=== PATIENT | male | born 1970 | race Caucasian/White ===

== ENCOUNTER → 2021-07-09 00:54 | Outpatient (CLI) | payer OTHER, SELFPAY ==
[2021-07-09 17:30] LABS: SARS-CoV-2 RNA PCR Negative
== END ==
PROVIDERS: PCP Family Medicine; Visit Provider Physician Assistant
DX: R68.89 Other general symptoms and signs (principal); Z20.822 Contact with and (suspected) exposure to COVID-19
CPT/HCPCS: C9803; U0003; U0005

== ENCOUNTER → 2022-10-19 16:04 | Outpatient (CLI) | payer OTHER, SELFPAY ==
--- NOTE | ~2022-10-19 | CT_ITS ---
EXAMINATION:CT lung screening DATE: 10/19/2022 16:15 INDICATION: Personal history of tobacco dependence. Current smoker with 30 pack year history. TECHNIQUE: Computed tomography (CT) of the chest was performed without intravenous contrast. Automate d exposure control and iterative reconstruction technique were employed. The dose-length product (DLP ) was 222.50 mGy-cm. COMPARISON: None. FINDINGS: There is mild emphysema. There is a 4 mm nodule in right upper lobe. There is mild atelecta sis bilaterally. No pleural effusion. Calcified right hilar lymph nodes are consistent with old granu lomatous disease. The heart size is normal. There are coronary artery calcifications. No pericardial effusion. Calcifications in the spleen are consistent with old granulomatous disease. There is modera te thoracic spondylosis. There is mild chronic anterior wedging of multiple vertebral bodies. IMPRESSION: 1. Lung-RADS category 2: Benign appearance or behavior. Continue annual screening with noncontrast lo w-dose chest CT in 12 months. Reviewed, dictated and finalized at location A. HINOLARYNGOLOGIST IMPRESSION: 1. Lung-RADS category 2: Benign appearance or behavior. Continue annual screeni ng with noncontrast low-dose chest CT in 12 months.
== END ==
PROVIDERS: PCP Family Medicine; Visit Provider Family Medicine
DX: Z12.2 Encounter for screening for malignant neoplasm of respiratory organs (principal); F17.210 Nicotine dependence, cigarettes, uncomplicated
CPT/HCPCS: 71271

== ENCOUNTER 2023-08-14 12:43 | Outpatient (CLI) | payer OTHER, SELFPAY ==
--- NOTE | 2023-08-14 14:00 | NEURO_ITS ---
Impression: # Complains of numbness of hands. # Severe left Carpal Tunnel Syndrome. # Moderate right Carpal Tunnel Syndrome. # Needle/EMG exam neurogenic in left APB. Nerve Conduction Studies Anti Sensory Summary Table Stim Site NR Peak (ms) P-T Amp (?V) Site1 Site2 Delta-P (ms) Dist (cm) Clint (m/s) Left Median Anti Sensory (2-3nd Digit) NO RESPONSE Wrist NR Wrist 2-3nd Digit 14.0 Wrist NR Wrist 2-3nd Digit 14.0 Right Median Anti Sensory (2-3nd Digit) Wrist 5.7 10.2 Wrist 2-3nd Digit 5.7 14.0 25 Wrist 6.5 4.5 Wrist 2-3nd Digit 5.7 14.0 25 Left Radial Anti Sensory (Base 1st Digit) Wrist 2.0 19.3 Wrist Base 1st Digit 2.0 0.0 Right Radial Anti Sensory (Base 1st Digit) Wrist 2.6 9.6 Wrist Base 1st Digit 2.6 0.0 Left Ulnar Anti Sensory (5th Digit) Wrist 3.0 9.8 Wrist 5th Digit 3.0 14.0 47 Right Ulnar Anti Sensory (5th Digit) Wrist 3.0 22.5 Wrist 5th Digit 3.0 14.0 47 Motor Summary Table Stim Site NR Onset (ms) O-P Amp (mV) Site1 Site2 Delta-0 (ms) Dist (cm) Clint (m/s) Left Median Motor (Abd Poll Brev) Wrist 6.2 1.1 Elbow Wrist 6.1 32.0 52 Elbow 12.3 1.2 Right Median Motor (Abd Poll Brev) Wrist 4.2 1.1 Elbow Wrist 6.9 34.0 49 Elbow 11.1 1.4 Left Ulnar Motor (Abd Dig Minimi) Wrist 3.0 6.2 A Elbow Wrist 5.9 33.0 56 A Elbow 8.9 5.4 Right Ulnar Motor (Abd Dig Minimi) Wrist 2.8 4.0 A Elbow Wrist 6.3 34.0 54 A Elbow 9.1 3.8 F Wave Studies NR F-Lat (ms) L-R F-Lat (ms) Left Median (Mrkrs) (Abd Poll Brev) 33.09 0.23 Right Median (Mrkrs) (Abd Poll Brev) 32.85 0.23 Left Ulnar (Mrkrs) (Abd Dig Min) 33.24 0.86 Right Ulnar (Mrkrs) (Abd Dig Min) 32.39 0.86 EMG Side Muscle Nerve Root Ins Act Fibs Amp Dur Recrt Comment Right 1stDorInt Ulnar C8-T1 Nml Nml Nml Nml Nml Right Ext Indicis Radial (Post Int) C7-8 Nml Nml Nml Nml Nml Right Ext Digitorum Radial (Post Int) C7-8 Nml Nml Nml Nml Nml Right BrachioRad Radial C5-6 Nml Nml Nml Nml Nml Right PronatorTeres Median C6-7 Nml Nml Nml Nml Nml Right Abd Poll Brev Median C8-T1 Nml Nml Nml >12ms Reduced Left 1stDorInt Ulnar C8-T1 Nml Nml Nml Nml Nml Left Ext Indicis Radial (Post Int) C7-8 Nml Nml Nml Nml Nml Left Ext Digitorum Radial (Post Int) C7-8 Nml Nml Nml Nml Nml Left BrachioRad Radial C5-6 Nml Nml Nml Nml Nml Left PronatorTeres Median C6-7 Nml Nml Nml Nml Nml Left Abd Poll Brev Median C8-T1 Nml Nml Nml >12ms Reduced MTDD
== END 2023-08-14 12:44 | disposition home or self-care (01) ==
LOC: ANHNEURO 12:44
PROVIDERS: PCP Family Medicine; Visit Provider Physician Assistant
DX: G56.03 Carpal tunnel syndrome, bilateral upper limbs (principal)
CPT/HCPCS: 95886; 95911

== ENCOUNTER 2023-09-13 05:50 | Day surgery (SDC) | payer OTHER, SELFPAY ==
[2023-09-04 09:43] VITALS: BMI 28.3
[2023-09-13 06:45] VITALS: BP 153/103; PULSE 71; RESP 14; TEMP 36.9; O2SAT 98
[2023-09-13] MEDS: LACTATED RINGERS 1,000 ML 30 ML IV CONT (06:45)
--- NOTE | 2023-09-13 06:54 | WPDHPUPDATE1 ---
History and Physical Update Update Date/Time: 09/13/23 06:54 Patient seen and examined in pre-operative holding area. No interval change in medical history or symptoms. Patient recalls previous discussion of benefits and alternatives to procedure. Continues to desire to proceed with left ectr poss open and bilateral first cmc joint steroid injections. Reviewed procedure, post-op expectations and risks including but not limited to bleeding, infection, injury to tendon/nerve/vessel, decreased hand function, stiffness, RSD, no change or worsening of symptoms. I discussed the possible use of assistants and their participation in the case. Patient stated understanding and signed the consent form wishing to proceed.
--- NOTE | 2023-09-13 06:55 | W.PM.PROC2 ---
Procedure Note - Detailed Date of Procedure 09/13/23 Pre-op Diagnosis Left Carpal Tunnel Syndrome, Osteoarthritis Post-op Diagnosis Same Procedure Performed left ectr and b/l first cmc joint steroid injections Surgeon Soniya Chavez MD Anesthesia MAC Description of Procedure INFORMED CONSENT: The patient was seen and examined and marked in the pre-op area.? The patient signed the consent form. PROCEDURE IN DETAIL:The patient taken back to OR on the stretcher in supine position. Time out performed with anesthesia, surgeon and staff agreeing on patient's name site and surgery to be performed SCDs were placed on the lower extremities and inflated. A tourniquet was placed on {left} upper extremity and antibiotics given IV After anesthesia administered sedation I injected {4}cc 1%lido with epi and 0.5% marcaine plain at the operative site The?{left upper extremity}?was prepped and draped in sterile fashion the??{left upper extremity} was? exsanguinated with Esmarch bandage and tourniquet inflated to 250mmHg I made a transverse incision in the {left} volar distal wrist crease through skin and dermis with 15 blade scalpel.? Littler scissors spread down to antebrachial fascia. A small incision was made in antebrachial fascia allowing access to Carpal tunnel. I proceeded with sequential dilation staying in line with the ring finger and hugging the hook of the hamate.? I then used the synovial elevator to free any adhesions from the underside of the transverse carpal ligament. The patient's proximal ligmant was extremely tight and notable synovitis requiring several passes of dilation and elvator use before able to insert the camera with good visualization. Next I was able to insert the Microaire endoscopic carpal tunnel device with direct visualization of the transverse fibers on the monitor and proceeded with complete segmental retrograde release of the ligament in its entirety.? I irrigated with normal saline and closed with 4-0 monocryl for dermis and subcuticular closure. I then proceeded with injection of 0.3cc 1%lido plain and 0.7cc betamethasone into left 1st cmc joint. A dressing of Dermabond, 4x4, aron, and a volar splint was applied for patient safety, security, and comfort and secured with an merari bandage after the tourniquet was let down noting the hand was warm and well perfused. Next, I then proceeded with injection of 0.3cc 1%lido plain and 0.7cc betamethasone into right 1st cmc joint under sterile conditions. The patient was then awaken from anesthesia and transferred to the recovery room in stable condition.? Complications - none EBL- 0cc Disposition - home in stable conditions AM Billing Surgery - Charge Forward: Surgery Billing ([id number])
--- NOTE | 2023-09-13 07:22 | SUR.PREOP ---
Dr. Loco notified of Pt's BP 153/103, 147/104, no new orders at this time.
--- NOTE | 2023-09-13 07:23 | P.PNAN_ITS ---
Anes - Initial Pre Proc Eval Procedure: Operation Date: 09/13/23 07:30 Proposed Procedures p Left Endoscopic Carpal Tunnel Release, Possible Open Carpal Tunnel Release - Soniya Chavez MD s Bilateral Basal Joint Steroid Injection - Soniya Chavez MD Date/Time: 09/13/23 07:23 Surgeon: Soniya Chavez MD Pre Op Diagnosis: Left Carpal Tunnel Syndrome, Osteoarthritis Patient Data Age: 52 Gender: M Height: 1.88 m Weight: 100.4 kg Last Vital Signs Temp 36.9 C 09/13/23 06:45 Pulse 71 09/13/23 06:45 Resp 14 09/13/23 06:45 BP 153/103 H 09/13/23 06:45 Pulse Ox 98 09/13/23 06:45 O2 Del Method Room Air 09/13/23 06:45 Allergies Allergy/AdvReac Type Severity Reaction Status Date / Time No Known Allergies Allergy Verified 09/13/23 06:28 Home Medications Medication Instructions Recorded Confirmed Type lisinopril 10 mg tablet 10 mg PO DAILY #90 tabs 01/19/23 09/13/23 Rx sildenafil 100 mg tablet See Rx Instructions .Route 03/07/23 09/13/23 Rx .COMPLEX #18 tabs tramadol 50 mg tablet 50 mg PO Q6H PRN pain #10 tabs 09/13/23 Rx Patient hx anesthesia problems: none Family hx anesthesia problems: none Results Review: All pre-operative results and documents have been reviewed as part of the pre- operative evaluation. [facility] Past Medical History Medical History Depression HTN (hypertension) Tobacco use Family History Family History Mother Cerebrovascular accident Family history of malignant neoplasm of breast in first degree relative Father Family history of coronary artery disease Family history of malignant neoplasm of urinary bladder Sibling Family history of malignant neoplasm of breast in first degree relative Social History Social History Years smoked: 30 Smoking status: Current every day smoker Tobacco type: cigarettes Second hand tobacco smoke exposure: No Alcohol intake: current Alcohol use details: 3-4x per week Substance use: never Substance use type: does not use Living arrangements: with family Occupation/Education: occupation Gender identity (if verbalized by the patient): Male Sexual Orientation (if Verbalized by the Patient): Straight or Heterosexual Spiritual care concerns: No Anes - Eval Final PreProcedure Day of Procedure 09/13/23 07:23 Patient weight: overweight Heart: regular rate and rhythm Lungs: decreased breath sounds Airway: Mallampati scale class II Neurological: alert and oriented Last oral intake: >/= 8 hours ASA classification: III Emergent: no Anesthetic plan: proceed Anesthesia type and monitoring: general GIVS and standard monitoring Results Review: All pre-operative results and documents have been reviewed as part of the pre- operative evaluation. Informed Consent: The patient's anesthetic plan and its attendant risks and benefits were discussed with the patient/family/POA. Questions were solicited and answers provided to the satisfaction of the patient/family/POA.
[2023-09-13] MEDS: ceFAZolin SODIUM 2 GM/20 ML SW SYRINGE IV PUSH (07:29)
[2023-09-13] MEDS: LIDOCAINE HCL 1% LOCAL INJ 20 ML VIAL INFILTRATE (07:35)
[2023-09-13] MEDS: BETAMETHASONE SODIUM PHOSPHATE PF INJ 6 MG/ML VIAL 4.2 MG INFILTRATE (07:35)
[2023-09-13] MEDS: LIDO 1%/EPINEPHRINE 1:100,000 20 ML VIAL 5 ML INFILTRATE (07:55)
[2023-09-13] MEDS: BUPivacaine HCL 0.5% 10 ML AMP INFILTRATE (07:55)
[2023-09-13 08:04] VITALS: BP 98/69; PULSE 62; RESP 16; O2SAT 95
[2023-09-13 08:25] VITALS: BP 100/73; PULSE 58; RESP 16; O2SAT 96
--- NOTE | 2023-09-13 08:44 | WPDANESPN ---
Anes - Prog Note Post-Op Date/Time: 09/13/23 08:44 Cardiovascular status: normal Respiratory status: normal Airway patency: baseline Mental status: baseline Post-Op hydration status: normal Vital Signs: Last Vital Signs Temp 36.9 C 09/13/23 06:45 Pulse 58 L 09/13/23 08:25 Resp 16 09/13/23 08:25 BP 100/73 09/13/23 08:25 Pulse Ox 96 09/13/23 08:25 O2 Del Method Room Air 09/13/23 08:25 Pain Score (VAS): 0 I/O: Intake & Output 09/12/23 09/13/23 09/13/23 23:59 07:59 15:59 Intake Total 100 Balance 100 Patient Feedback: Patient satisfied with anesthetic care.
== END 2023-09-13 08:45 | disposition home or self-care (01) ==
PROVIDERS: PCP Family Medicine; Visit Provider Plastic Surgery
PROC: 01N54ZZ Release Median Nerve, Percutaneous Endoscopic Approach (ICD-10-PCS; CPT 29848; principal; 2023-09-13 07:30)
PROC: (CPT 29848; 2023-09-13 07:30)
DX: G56.02 Carpal tunnel syndrome, left upper limb (principal); M19.042 Primary osteoarthritis, left hand; M19.041 Primary osteoarthritis, right hand
CPT/HCPCS: 29848; 20600 ×2

== ENCOUNTER 2023-10-18 05:48 | Day surgery (SDC) | payer OTHER, SELFPAY ==
[2023-10-02 11:23] VITALS: BMI 28.5
--- NOTE | 2023-10-17 11:41 | WPDANESEPPF ---
Anes - Initial Pre Proc Eval Procedure: Operation Date: 10/18/23 07:30 Proposed Procedures p Right Endoscopic Carpal Tunnel Release, Possible Open Carpal Tunnel Release - Soniya Chavez MD Date/Time: 10/17/23 11:41 Surgeon: Soniya Chavez MD Pre Op Diagnosis: Right Carpal Tunnel Syndrome Patient Data Age: 52 Gender: M Height: 1.88 m Weight: 100.7 kg Allergies Allergy/AdvReac Type Severity Reaction Status Date / Time No Known Allergies Allergy Verified 10/18/23 06:08 Home Medications Medication Instructions Recorded Confirmed Type sildenafil 100 mg tablet See Rx Instructions .Route 03/07/23 10/18/23 Rx .COMPLEX #18 tabs tramadol 50 mg tablet 50 mg PO Q6H PRN pain #10 tabs 09/13/23 10/18/23 Rx lisinopril 10 mg tablet 10 mg PO DAILY #90 tabs 10/15/23 10/18/23 Rx Patient hx anesthesia problems: none Family hx anesthesia problems: none Results Review: All pre-operative results and documents have been reviewed as part of the pre-operative evaluation. PEND[facility] SALE TO [facility] Past Medical History Medical History Depression HTN (hypertension) Tobacco use Family History Family History Mother Cerebrovascular accident Family history of malignant neoplasm of breast in first degree relative Father Family history of coronary artery disease Family history of malignant neoplasm of urinary bladder Sibling Family history of malignant neoplasm of breast in first degree relative Social History Social History (Updated 10/18/23 @ 07:03 by Roney Valera DO) Smoking packs per day: 0.5 Smoking cigarettes per day: 10.0 Years smoked: 30 Smoking pack-years: 15.00 Smoking status: Current every day smoker Tobacco type: cigarettes Second hand tobacco smoke exposure: No Alcohol intake: current Alcohol use details: 4-5 beers 3-4x week Substance use: current Substance use type: marijuana Other substance usage details: daily Living arrangements: with family Occupation/Education: occupation Gender identity (if verbalized by the patient): Male Sexual Orientation (if Verbalized by the Patient): Straight or Heterosexual Spiritual care concerns: No Anes - Eval Final PreProcedure Day of Procedure 10/17/23 11:41 Patient weight: overweight Heart: regular rate and rhythm Lungs: clear to auscultation Airway: Mallampati scale class III Neurological: alert and oriented Last oral intake: >/= 8 hours ASA classification: III Emergent: no Anesthetic plan: proceed Anesthesia type and monitoring: general GIVS and standard monitoring Results Review: All pre-operative results and documents have been reviewed as part of the pre-operative evaluation. Informed Consent: The patient's anesthetic plan and its attendant risks and benefits were discussed with the patient/family/POA. Questions were solicited and answers provided to the satisfaction of the patient/family/POA.
[2023-10-18 06:35] VITALS: BP 124/87; PULSE 70; RESP 20; TEMP 36.7; O2SAT 98
[2023-10-18] MEDS: LACTATED RINGERS 1,000 ML 30 ML IV CONT (06:39)
--- NOTE | 2023-10-18 07:00 | WPDHPUPDATE1 ---
History and Physical Update Update Date/Time: 10/18/23 07:00 Patient seen and examined in pre-operative holding area. No interval change in medical history or symptoms. Patient recalls previous discussion of benefits and alternatives to procedure. Continues to desire to proceed with right endoscopic possible open carpal tunnel release . Reviewed procedure, post-op expectations and risks including but not limited to bleeding, infection, injury to tendon/nerve/vessel, decreased hand function, stiffness, RSD, no change or worsening of symptoms. I discussed the possible use of assistants and their participation in the case. Patient stated understanding and signed the consent form wishing to proceed.
--- NOTE | 2023-10-18 07:01 | W.PM.PROC2 ---
Procedure Note - Detailed Date of Procedure 10/18/23 Pre-op Diagnosis Right Carpal Tunnel Syndrome Post-op Diagnosis Same Procedure Performed right ectr Surgeon Soniya Chavez MD Anesthesia MAC Description of Procedure INFORMED CONSENT: The patient was seen and examined and marked in the pre-op area.? The patient signed the consent form. PROCEDURE IN DETAIL:The patient taken back to OR on the stretcher in supine position. Time out performed with anesthesia, surgeon and staff agreeing on patient's name site and surgery to be performed SCDs were placed on the lower extremities and inflated. A tourniquet was placed on {right} upper extremity and antibiotics given IV After anesthesia administered sedation I injected {5}cc 1%lido with epi and 0.5% marcaine plain at the operative site The?{right upper extremity}?was prepped and draped in sterile fashion the??{right upper extremity} was? exsanguinated with Esmarch bandage and tourniquet inflated to 250mmHg I made a transverse incision in the {right} volar distal wrist crease through skin and dermis with 15 blade scalpel.? Littler scissors spread down to antebrachial fascia. A small incision was made in antebrachial fascia allowing access to Carpal tunnel. I proceeded with sequential dilation staying in line with the ring finger and hugging the hook of the hamate.? I then used the synovial elevator to free any adhesions from the underside of the transverse carpal ligament. Next I was able to insert the arthrex centerline endoscopic carpal tunnel device with direct visualization of the transverse fibers on the monitor and proceeded with complete segmental retrograde release of the ligament in its entirety.? I irrigated with normal saline and closed with 4-0 monocryl for dermis and subcuticular closure. A dressing of Dermabond, 4x4, aron, and a volar splint was applied for patient safety, security, and comfort and secured with an merari bandage after the tourniquet was let down noting the hand was warm and well perfused. The patient was then awaken from anesthesia and transferred to the recovery room in stable condition.? Complications - none EBL- 0cc Disposition - home in stable conditions [facility] [place] Surgery - Charge Forward: Surgery Billing ([id number])
[2023-10-18] MEDS: ceFAZolin SODIUM 2 GM/20 ML SW SYRINGE IV PUSH (07:25)
[2023-10-18] MEDS: BUPivacaine HCL 0.5% 10 ML AMP 5 ML INFILTRATE (07:29)
[2023-10-18] MEDS: LIDOCAINE HCL 1% PF INJ 5 ML VIAL INFILTRATE (07:29)
[2023-10-18 07:50] VITALS: BP 105/68; PULSE 65; RESP 16; O2SAT 92
[2023-10-18 08:05] VITALS: BP 119/73; PULSE 58; RESP 15; O2SAT 93
[2023-10-18 08:20] VITALS: BP 119/53; PULSE 60; RESP 15; O2SAT 95
--- NOTE | 2023-10-18 10:11 | WPDANESPN ---
Anes - Prog Note Post-Op Date/Time: 10/18/23 10:11 Cardiovascular status: normal Respiratory status: normal Airway patency: baseline Mental status: baseline Post-Op hydration status: normal Vital Signs: Last Vital Signs Temp 36.7 C 10/18/23 06:35 Pulse 60 10/18/23 08:20 Resp 15 10/18/23 08:20 BP 119/53 L 10/18/23 08:20 Pulse Ox 95 10/18/23 08:20 O2 Del Method Room Air 10/18/23 08:20 Pain Score (VAS): 0 I/O: Intake & Output 10/17/23 10/18/23 10/18/23 23:59 07:59 15:59 Intake Total 500 Balance 500 Post-procedural complaints: none Patient Feedback: Patient satisfied with anesthetic care. Other Findings: Patient vital signs back to baseline. Patient denies nausea and vomiting. Patient's pain under control. Patient OK for discharge.
== END 2023-10-18 08:30 | disposition home or self-care (01) ==
PROVIDERS: PCP Family Medicine; Visit Provider Plastic Surgery
PROC: 01N54ZZ Release Median Nerve, Percutaneous Endoscopic Approach (ICD-10-PCS; CPT 29848; principal; 2023-10-18 07:30)
DX: G56.01 Carpal tunnel syndrome, right upper limb (principal)
CPT/HCPCS: 29848

== ENCOUNTER 2024-05-13 16:25 | Outpatient (CLI) | payer OTHER, SELFPAY ==
--- NOTE | ~2024-05-13 | CT_ITS ---
EXAMINATION:CT lung screening DATE: 05/13/2024 16:55 INDICATION: Tobacco use. Current smoker with 30 pack year history. TECHNIQUE: Computed tomography (CT) of the chest was performed without intravenous contrast. Automate d exposure control and iterative reconstruction technique were employed. The dose-length product (DLP ) was 180.62 mGy-cm. COMPARISON: Chest CT 10/19/2022 FINDINGS: There is a stable 5 mm nodule in right upper lobe. No pleural effusion. The heart size is n ormal. No pericardial effusion. There are coronary artery calcifications. Calcified right hilar lymph nodes are consistent with old granulomatous disease. There is mild thoracic spondylosis and severe l umbar spondylosis. IMPRESSION: 1. Lung-RADS category 2: Benign appearance or behavior. Continue annual screening with noncontrast lo w-dose chest CT in 12 months. Reviewed, dictated and finalized at location A. IMPRESSION: 1. Lung-RADS category 2: Benign appearance or behavior. Continue annual screeni ng with noncontrast low-dose chest CT in 12 months.
== END 2024-05-13 16:26 | disposition home or self-care (01) ==
PROVIDERS: PCP Family Medicine; Visit Provider Physician Assistant Medical
DX: Z12.2 Encounter for screening for malignant neoplasm of respiratory organs (principal); Z87.891 Personal history of nicotine dependence
CPT/HCPCS: 71271

== ENCOUNTER 2024-07-04 01:58 | Day surgery (SDC) | payer OTHER, SELFPAY ==
[2024-06-27 13:32] VITALS: BMI 26.4
--- NOTE | 2024-06-27 13:38 | PC.NURSE ---
Report to the Outpatient Waiting Room, entrance under the green pavilion located off [facility], at time _1000_ on date _[phone]_. Planned Procedure Time: _1200_.? Time changes happen often and if your time is changed the preop area will call you the afternoon before. - You and your visitor will be asked to self-screen and do not enter if you have any COVID symptoms. Please call surgeon if you need to reschedule. - A mask is optional within the hospital at this time. Patients may have clear liquids (water, carbonated beverages, clear teas, apple juice) until 3 hours prior to surgery with a maximum of 20 ounces. - No food from midnight until time of surgery and no smoking Take only the following medications with a SIP of water on the morning of surgery: __Sertraline____ DO NOT STOP ANY OF YOUR OTHER PRESCRIPTION MEDICATIONS PRIOR TO SURGERY EXCEPT THE FOLLOWING Medications to discontinue per physician ___Vitamins and patient is also stopping celebrex Date to take last [id number]___ Please no make-up, nail upper sorbian, hairspray, perfume, deodorant, or body powder the day of surgery.? No jewelry (including any body piercings) or valuables the day of surgery, leave them at home.? Please take a shower or bath the night before, or the morning of, surgery with an antibacterial soap.? Wear comfortable, loose fitting clothing.? - Jewelry must be removed prior to entering the operating room.? Rings and piercings that are not removed may be cut off. - The hospital will not accept responsibility for valuables.? - Please leave all valuables, including medications, at home the day of surgery. If you are going home after surgery, a licensed cattle driver must drive you home.? - NO public transportation without another adult if you receive anesthesia. - We recommend that an adult stay with you for 24 hours following discharge. - We also recommend that you do not drive, make important decision, drink alcoholic beverages, or take any drugs that were not prescribed by your health care provider for at least 24 hours after your discharge time. Follow any additional instructions given to you from your surgeon. Telephone instructions given to _Rosendo__and asked if any additional questions and then verbalized understanding. Patient advised to call surgeon office or pre surgery nurse liaison [phone] if any additional questions.
[2024-07-04] VITALS (7 sets, daily range): BP systolic 117–170; BP diastolic 74–91; PULSE 59–80; RESP 14–18; TEMP 36.3–36.4; O2SAT 93–99; BMI 26.7
[2024-07-04] MEDS: LACTATED RINGERS 1,000 ML 30 ML IV CONT (10:52)
--- NOTE | 2024-07-04 11:11 | WPDANESEPPF ---
Anes - Initial Pre Proc Eval Procedure: Operation Date: 07/04/24 12:00 Proposed Procedures p Excision Skin Cyst Right Upper Back - Maico Lynn MD Date/Time: 07/04/24 11:11 Surgeon: Maico Lynn MD Pre Op Diagnosis: 2.3 cm Skin Cyst right Upper Back Patient Data Age: 53 Gender: M Height: 1.88 m Weight: 94.6 kg Last Vital Signs Temp 36.3 C L 07/04/24 10:49 Pulse 72 07/04/24 10:49 Resp 16 07/04/24 10:49 BP 141/88 H 07/04/24 10:49 Pulse Ox 98 07/04/24 10:49 O2 Del Method Room Air 07/04/24 10:49 Allergies Allergy/AdvReac Type Severity Reaction Status Date / Time No Known Allergies Allergy Verified 06/27/24 13:28 Home Medications Medication Instructions Recorded Confirmed Type lisinopril 10 mg tablet 10 mg PO DAILY #90 tabs 10/15/23 06/27/24 Rx sildenafil 100 mg tablet See Rx Instructions .Route 02/14/24 06/27/24 Rx .COMPLEX #18 tabs sertraline 50 mg tablet 50 mg PO DAILY #30 tabs 06/10/24 06/27/24 Rx celecoxib 200 mg capsule 200 mg PO BID 06/27/24 06/27/24 History cholecalciferol (vitamin D3) 25 25 mcg PO DAILY 06/27/24 06/27/24 History mcg (1,000 unit) tablet (Vitamin D3) multivitamin 1 tablet PO DAILY 06/27/24 06/27/24 History prasterone (dhea) 50 mg capsule 50 mg PO DAILY 06/27/24 06/27/24 History (DHEA) Patient hx anesthesia problems: none Family hx anesthesia problems: none Results Review: All pre-operative results and documents have been reviewed as part of the pre-operative evaluation. [facility] Past Medical History Medical History Depression HTN (hypertension) Tobacco use Family History Family History Mother Cerebrovascular accident Family history of malignant neoplasm of breast in first degree relative Father Family history of coronary artery disease Family history of malignant neoplasm of urinary bladder Sibling Family history of malignant neoplasm of breast in first degree relative Social History Social History (Updated 10/17/24 @ 08:29 by AVRIL Gonzalez Social History: Smoking packs per day: 1 Smoking cigarettes per day: 20.0 Years smoked: 30 Smoking pack-years: 30.00 Smoking status: Current every day smoker Tobacco type: cigarettes Second hand tobacco smoke exposure: No Alcohol intake: current Drinks per week: 12 Alcohol use details: 4-5 beers 3-4x week Substance use: former Substance use type: marijuana Last use: Pt quit smoking marijuana 5 months ago. Current Housing: Decline to Answer Concerned About Future Housing: Decline to Answer Difficulty Paying Gas/Electric Bills: Decline to Answer Difficulty Paying for Meds: Decline to Answer Currently Unemployed: Decline to Answer Education: Decline to Answer Difficulty w/ Childcare or Family Care: Decline to Answer Living arrangements: with family Occupation/Education: occupation Additional occupation/education comments: [employer] Gender identity (if verbalized by the patient): Male Sexual Orientation (if Verbalized by the Patient): Straight or Heterosexual Spiritual care concerns: No Anes - Eval Final PreProcedure Day of Procedure 07/04/24 11:11 Patient weight: overweight Heart: regular rate and rhythm Lungs: clear to auscultation Airway: Mallampati scale class III Neurological: alert and oriented Last oral intake: >/= 8 hours ASA classification: III Emergent: no Anesthetic plan: proceed Anesthesia type and monitoring: general GIVS and standard monitoring Results Review: All pre-operative results and documents have been reviewed as part of the pre-operative evaluation. Informed Consent: The patient's anesthetic plan and its attendant risks and benefits were discussed with the patient/family/POA. Questions were solicited and answers provided to the satisfaction of the patient/family/POA.
--- NOTE | 2024-07-04 11:57 | WPDHPUPDATE1 ---
History and Physical Update Update Date/Time: 07/04/24 11:57 History and Physical has been reviewed, including an updated exam of the patient. There are NO changes in the patient's condition. Risks, benefits, and alternatives have been discussed and questions answered. Patient agrees to proceed with procedure.
[2024-07-04] MEDS: BUPIVACAINE/EPINEPHRINE 0.5% 50 ML VIAL 20 ML INFILTRATE (12:07)
[2024-07-04] MEDS: ceFAZolin 2 GM/D5W 50 ML 2 GM/50 ML BAG IVPB (12:07)
--- NOTE | 2024-07-04 13:06 | W.PM.PROC2 ---
Procedure Note - Detailed Date of Procedure 07/04/24 Pre-op Diagnosis 1.8 cm Skin Cyst right Upper Back Post-op Diagnosis Same Procedure Performed Excision 1.8 cm skin cyst of the back with 2 mm margins, 2.2 cm excision. 8.5 cm layered closure. Surgeon Maico Lynn MD [employer] Missy Ervin [facility] Anesthesia General and Local Indications Patient had infected cyst in the right upper back that had originally started in early April. This had been treated with Prid cream. It had become less swollen but was still draining when I saw him. His initial visit showed the cyst to be 3.5 cm. He was treated with cefuroxime and seen back again in 3 weeks. The cyst had shrunken to 2.3 cm and with had flattened significantly. The drainage had stopped. He was scheduled for surgical excision. Evaluation this morning show that the cyst had decreased even further and was now only 1.8 cm in diameter. Findings Cyst excised with 2 mm margin. Did not see wall of cyst or any cyst contents. Description of Procedure Patient was taken to surgery and induced into general anesthesia with endotracheal tube. He was then placed in a prone position. The area of the cyst had been marked in the preoperative holding area prior to surgery. The right upper and mid back were then prepped and draped. Local anesthetic was infiltrated into the skin and subcutaneous of the planned excision. Incision was made creating an ellipse that would include the cyst with the excision. Cautery was used for hemostasis. Eventually the entire ellipse with the underlying subcutaneous in the area of the cyst was completely excised. I was able to measure the cyst and it was 1.8 cm. 2 mm margins were taken as well and this was a 2.2 cm excision. The wound left after cyst removal measured 8.5 cm in transverse length. I infiltrated additional local into the wound. I then undermined the cephalad and caudad flap so that they would close with very little to tension. Cautery was used for hemostasis. Kirstie's fascia was then closed with interrupted 3-0 Vicryl suture. The subcutaneous was then closed with interrupted subcuticular 4-0 Vicryl skin stitches. A running 4-0 Monocryl continuous subcuticular skin stitch was then placed. The wound was dressed with Exofin surgical adhesive. Patient was then returned to a supine position, awakened and extubated. He was taken to recovery in good condition. Sponge needle counts were correct x2. Estimated Blood Loss -5 Drains No Packing No Pathology Yes (Skin cyst of the back) Complications None Condition Stable Disposition PACU [facility] Billing Surgery - Charge Forward: Surgery Billing (Excision 1.8 cm skin cyst of the back with 2 mm margins, 2.2 cm excision. 8.5 cm layered closure.)
== END 2024-07-04 14:32 | disposition home or self-care (01) ==
PROVIDERS: PCP Family Medicine; Visit Provider Surgery
PROC: (CPT 11403; principal; 2024-07-04 12:00)
DX: L72.0 Epidermal cyst (principal); I10 Essential (primary) hypertension; F32.A Depression, unspecified; F17.210 Nicotine dependence, cigarettes, uncomplicated; F12.90 Cannabis use, unspecified, uncomplicated; G89.18 Other acute postprocedural pain; Z85.51 Personal history of malignant neoplasm of bladder; Z80.3 Family history of malignant neoplasm of breast; Z82.49 Family history of ischemic heart disease and other diseases of the circulatory system
CPT/HCPCS: 11403; 12034; 88305; J0330; J0690; J2003; J2250; J2405; J2704; J3010; J7120